=== PATIENT | male | born 1965 | race Two or more races ===

== ENCOUNTER 2020-12-17 12:34 | Inpatient (IN) | payer OTHER ==
[~2020-12-17] VITALS: Ht 177.8 cm; Wt 71.7 kg
[2020-12-17 13:16] LABS: Basophils # (auto) 0.1 10 ^3/uL (0-0.2); Basophils % (auto) 1.2 % (0.0-2.0); Eosinophils # (auto) 0.2 10 ^3/uL (0-0.8); Hematocrit 29.2 % (41.0-53.0); Hemoglobin 10.2 g/dL (13.5-17.5); Lymphocytes # (auto) 1.7 10 ^3/uL (0.4-5.4); Lymphocytes % (auto) 31.8 % (10.0-50.0); Mean Corpuscular Hemoglobin 32.2 pg (28.0-32.0); Mean Corpuscular Hgb Conc. 35.1 g/dL (32.0-36.0); Mean Corpuscular Volume 91.8 fL (80.0-100.0); Monocytes # (auto) 0.4 10 ^3/uL (0-1.3); Monocytes % (auto) 7.7 % (0.0-12.0); Neutrophils # (auto) 3.1 10 ^3/uL (1.6-8.6); Neutrophils % (auto) 56.3 % (37.0-80.0); Platelet Count (auto) 182 10^3/uL (140-450); Red Blood Cells 3.18 10^6/uL (4.5-5.90); Red Cell Distribution Width 15.3 % (11.8-14.3); White Blood Cell 5.5 10^3/uL (4.4-10.8)
[2020-12-17 13:32] LABS: Albumin 1.5 g/dL (3.4-5.0); Anion Gap 7 (5-15); Blood Urea Nitrogen 58 mg/dL (7-18); Calcium 9.3 mg/dL (8.5-10.1); Carbon Dioxide 28 mmol/L (21-32); Chloride 92 mmol/L (98-107); Glucose 78 mg/dL (74-106); Magnesium 2.9 mg/dL (1.6-2.6); Sodium 127 mmol/L (136-145)
[2020-12-17 13:33] LABS: Alanine Aminotransferase 15 U/L (16-61); Aspartate Aminotransferase 22 U/L (15-37); GFR African American 9 mL/min; GFR Non-African American 7 mL/min
[2020-12-17 13:38] LABS: Alkaline Phosphatase 128 U/L (45-117); Bilirubin, Total 0.3 mg/dL (0.2-1.0); Total Protein 6.9 g/dL (6.4-8.2)
[2020-12-17 13:55] LABS: Potassium 6.3 mmol/L (3.5-5.1)
[2020-12-17] MEDS ORDERED: CALCIUM GLUC 1,000mg/50ml-NS 50 ML IV ONE (14:00)
[2020-12-17] MEDS ORDERED: SODIUM BICARBONATE 8.4 % INJ 50ML VIAL IV ONE (14:00)
[2020-12-17] MEDS ORDERED: SODIUM BICARBONATE 8.4% INJ 50ML SYRINGE ONE (15:50)
[2020-12-17] MEDS ORDERED: NITROGLYCERIN 0.4 MG SL TAB SL PRN (17:30)
[2020-12-17] MEDS ORDERED: METOPROLOL TARTRATE 1MG/1ML-5ML VIAL IV PRN (17:45)
[2020-12-17] MEDS ORDERED: GLYCERIN ADULT RECTAL SUPP PR PRN (17:45)
[2020-12-17] MEDS ORDERED: ONDANSETRON HCL 4 MG/2 ML VIAL IV PRN (17:45)
[2020-12-17] MEDS ORDERED: ACETAMINOPHEN 325 MG RECT SUPP PR PRN (17:45)
[2020-12-17] MEDS: SODIUM CHLORIDE 0.9% 1,000 ML IV SCH ×2 (19:30→20:35)
[2020-12-17] MEDS ORDERED: LORazepam 2MG/ML-1ML VIAL IV PRN ×2 (19:30)
[2020-12-17] MEDS ORDERED: VALPROATE INJ 1,000 MG in SODIUM CHL 0.9% 100 ML IV ONE (19:30)
[2020-12-17] MEDS ORDERED: ASPI-231 PO (20:15)
[2020-12-17] MEDS ORDERED: ATOR10TA52 PO (20:17)
[2020-12-17] MEDS ORDERED: FERR1TAB17 PO (20:18)
[2020-12-17] MEDS ORDERED: METO25TA5 PO (20:19)
[2020-12-17] MEDS ORDERED: PANT1INJ3 IV (20:20)
[2020-12-17] MEDS ORDERED: SEVE800T8 PO (20:21)
[2020-12-17] MEDS ORDERED: SODIGRA31 XX (20:22)
[2020-12-17] MEDS ORDERED: PSYL100P8 OR (20:24)
[2020-12-17] MEDS ORDERED: GENT0.1O5 TOP (20:26)
[2020-12-17] MEDS ORDERED: LACO200T PO (20:27)
[2020-12-17] MEDS ORDERED: DIVA1TAB59 PO (20:27)
[2020-12-17] MEDS ORDERED: LANT10002 PO (20:28)
[2020-12-17] MEDS ORDERED: VIMPAT 200 MG IV SCH (22:00)
[2020-12-17] MEDS: ATORVASTATIN 20 MG TAB PO SCH (22:21)
[2020-12-17] MEDS: LACOSAMIDE 200 MG in SODIUM CHL 0.9% 100 ML IV SCH (22:21)
[2020-12-18] MEDS: SODIUM CHLORIDE 0.9% 1,000 ML IV SCH ×2 (05:30→12:49)
[2020-12-18 09:03] LABS: Basophils # (auto) 0.1 10 ^3/uL (0-0.2); Basophils % (auto) 1.2 % (0.0-2.0); Eosinophils # (auto) 0.4 10 ^3/uL (0-0.8); Eosinophils % (auto) 4.4 % (0.0-7.0); Hematocrit 29.1 % (41.0-53.0); Lymphocytes # (auto) 2.8 10 ^3/uL (0.4-5.4); Lymphocytes % (auto) 31.7 % (10.0-50.0); Mean Corpuscular Hemoglobin 31.7 pg (28.0-32.0); Mean Corpuscular Hgb Conc. 34.3 g/dL (32.0-36.0); Mean Corpuscular Volume 92.4 fL (80.0-100.0); Monocytes # (auto) 0.6 10 ^3/uL (0-1.3); Monocytes % (auto) 6.8 % (0.0-12.0); Neutrophils % (auto) 55.9 % (37.0-80.0); Nucleated Red Blood Cells % 0.3 %; Platelet Count (auto) 173 10^3/uL (140-450); Red Blood Cells 3.15 10^6/uL (4.5-5.90); Red Cell Distribution Width 15.1 % (11.8-14.3); White Blood Cell 8.9 10^3/uL (4.4-10.8)
[2020-12-18 10:00] VITALS: BP 141/106
[2020-12-18] MEDS ORDERED: VALPROATE INJ 750 MG in SODIUM CHL 0.9% 100 ML IV SCH (10:00)
[2020-12-18] MEDS: PANTOPRAZOLE 40 MG/10 ML VIAL INJ IV SCH (10:50)
[2020-12-18] MEDS: LACOSAMIDE 200 MG in SODIUM CHL 0.9% 100 ML IV SCH ×2 (10:51→22:10)
[2020-12-18] MEDS: ENOXAPARIN SOD 30 MG/0.3 ML SYRINGE SC SCH (10:52)
[2020-12-18] MEDS: ASPirin 81 mg TAB PO SCH (10:53)
[2020-12-18 11:29] LABS: Sodium 129 mmol/L (136-145)
[2020-12-18 11:30] LABS: Anion Gap 15 (5-15); Carbon Dioxide 19 mmol/L (21-32); Chloride 95 mmol/L (98-107); Potassium 7.1 mmol/L (3.5-5.1)
[2020-12-18 11:31] LABS: Alkaline Phosphatase 108 U/L (45-117); Aspartate Aminotransferase 29 U/L (15-37); Blood Urea Nitrogen 70 mg/dL (7-18); GFR African American 8 mL/min; GFR Non-African American 7 mL/min
[2020-12-18 11:32] LABS: Alanine Aminotransferase 13 U/L (16-61); Albumin 1.5 g/dL (3.4-5.0); Bilirubin, Total 0.3 mg/dL (0.2-1.0); Calcium 8.3 mg/dL (8.5-10.1)
[2020-12-18 11:33] LABS: Total Protein 6.4 g/dL (6.4-8.2)
[2020-12-18] MEDS ORDERED: SODIUM BICARBONATE 8.4 % INJ 50ML VIAL IV ONE (12:45)
[2020-12-18] MEDS ORDERED: InsuLIN REG 1unit/0.01ml Soln (100units/ml) IV ONE (12:45)
[2020-12-18] MEDS ORDERED: DEXTROSE (50%) 50ML SYRG IV ONE ×2 (12:45→22:15)
[2020-12-18 13:00] VITALS: BP 153/90
[2020-12-18 13:50] LABS: Magnesium 2.9 mg/dL (1.6-2.6); Phosphorus 5.5 mg/dL (2.5-4.90)
[2020-12-18] MEDS ORDERED: KETOROLAC TROMETH 30 MG/ML 1ML VIAL IV PRN ×2 (16:15→16:30)
[2020-12-18 17:00] VITALS: BP 138/98
[2020-12-18] MEDS ORDERED: SODIUM CHL 0.9% 1000 ML BAG XX ONE (18:00)
[2020-12-18 18:30] LABS: INR 1.1 (0.9-1.15); Partial Thromboplastin Time 42.3 sec (23.0-31.2)
[2020-12-18 18:31] LABS: BUN/Creatinine Ratio 6.9; Calcium 8.6 mg/dL (8.5-10.1)
[2020-12-18 18:50] LABS: Potassium 6.2 mmol/L (3.5-5.1)
[2020-12-18] MEDS ORDERED: EPOETIN ALFA-EPBX 10,000 UNIT/1ML VIAL SC ONE (21:00)
[2020-12-18] MEDS ORDERED: VALPROATE INJ 1,000 MG in SODIUM CHL 0.9% 100 ML IV ONE (21:15)
[2020-12-18 21:31] LABS: BUN/Creatinine Ratio 6.5; Calcium 8.3 mg/dL (8.5-10.1); Potassium 5.3 mmol/L (3.5-5.1)
[2020-12-18] MEDS ORDERED: DEXTROSE 50% SYRINGE 50 ML IV ONE (21:42)
[2020-12-18 22:00] VITALS: BP 107/71
[2020-12-18] MEDS: ATORVASTATIN 20 MG TAB PO SCH (22:01)
[2020-12-18] MEDS ORDERED: DEXTROSE 10% 1,000 ML IV ONE (22:15)
[2020-12-19 05:00] VITALS: BP 136/85
[2020-12-19 09:00] VITALS: BP 153/85
[2020-12-19] MEDS: ENOXAPARIN SOD 30 MG/0.3 ML SYRINGE SC SCH (10:20)
[2020-12-19] MEDS: ASPirin 81 mg TAB PO SCH (10:20)
[2020-12-19 10:32] LABS: Albumin 1.6 g/dL (3.4-5.0); Potassium 5.3 mmol/L (3.5-5.1)
[2020-12-19 10:36] LABS: BUN/Creatinine Ratio 6.3; Bilirubin, Total 0.4 mg/dL (0.2-1.0); Total Protein 6.9 g/dL (6.4-8.2)
[2020-12-19] MEDS: PANTOPRAZOLE 40 MG/10 ML VIAL INJ IV SCH (11:23)
[2020-12-19] MEDS: LACOSAMIDE 200 MG in SODIUM CHL 0.9% 100 ML IV SCH ×2 (12:00→22:18)
[2020-12-19 13:00] VITALS: BP 146/81
[2020-12-19] MEDS ORDERED: VALPROATE INJ 750 MG in SODIUM CHL 0.9% 100 ML IV SCH (14:00)
[2020-12-19 17:22] VITALS: BP 156/106
[2020-12-19] MEDS: ATORVASTATIN 20 MG TAB PO SCH (22:18)
[2020-12-21 14:05] LABS: Hepatitis A Ab IgM Negative; Hepatitis B Core IgM Negative; Hepatitis B Surface Antigen Negative (Negative); Hepatitis C Antibody Negative (Negative)
== END 2020-12-20 02:20 | disposition short-term general hospital (02) | DRG 100 ==
LOC: EDBD 12:34 → ER 12:34 → TELE 17:30 → TELE-CENTR 12-18 09:56
PROVIDERS: ADMIT Family Medicine; ATTEND Family Medicine
PROC: 5A1D70Z Performance of Urinary Filtration, Intermittent, Less than 6 Hours Per Day (ICD-10-PCS; principal; 2020-12-18)
PROC: 02HV33Z Insertion of Infusion Device into Superior Vena Cava, Percutaneous Approach (ICD-10-PCS; 2020-12-18)
PROC: 05H933Z Insertion of Infusion Device into Right Brachial Vein, Percutaneous Approach (ICD-10-PCS; 2020-12-19)
PROC: B54MZZA Ultrasonography of Right Upper Extremity Veins, Guidance (ICD-10-PCS; 2020-12-19)
DX: G40.209 Localization-related (focal) (partial) symptomatic epilepsy and epileptic syndromes with complex partial seizures, not intractable, without status epilepticus (principal); N18.6 End stage renal disease; E87.1 Hypo-osmolality and hyponatremia; E46 Unspecified protein-calorie malnutrition; I12.0 Hypertensive chronic kidney disease with stage 5 chronic kidney disease or end stage renal disease; N17.9 Acute kidney failure, unspecified; E87.5 Hyperkalemia; D64.9 Anemia, unspecified; Z20.822 Contact with and (suspected) exposure to COVID-19; K59.00 Constipation, unspecified; Z86.73 Personal history of transient ischemic attack (TIA), and cerebral infarction without residual deficits; Z99.2 Dependence on renal dialysis; Z68.22 Body mass index [BMI] 22.0-22.9, adult; Z82.49 Family history of ischemic heart disease and other diseases of the circulatory system; Z82.71 Family history of polycystic kidney
CPT/HCPCS: 36415; 70450; 70551; 71045; 80048; 80053; 80074; 80164; 82542; 82947; 82962; 83735; 84100; 84443; 84484; 85025; 85610; 85730; 87040; 87081; 87426; 95819; 96361; 96365; A4565; C9113; C9254; G0378; J1642; J1815; J1885; J7060